=== PATIENT | male | born 1960 | race Caucasian/White ===

== ENCOUNTER 2018-11-29 11:15 | Inpatient (IN) | payer OTHER ==
[~2018-11-29] VITALS: Ht 182.9 cm; Wt 98.0 kg
[2018-11-29 11:24] VITALS: BP 147/82
[2018-11-29 11:52] LABS: HEMATOCRIT 47.6 % (42.0-52.0); HEMOGLOBIN 16.1 gm/dL (14.0-18.0); MCH 30.1 pg (26.0-34.0); MCHC 33.8 g/dL (28.0-37.0); MCV 89.1 fL (80.0-100.0); MPV 8.3 fl. (7.2-11.1); NUCLEATED RBCS 0 /100WBC; PLATELET COUNT* 290 thou/uL (150-400); RBC 5.34 mil/uL (4.50-6.00); RDW-CV 13.2 % (10.5-14.5); WBC 20.4 thou/uL (4.0-11.0)
[2018-11-29 12:01] LABS: URINE BLOOD TRACE (Negative); URINE CLARITY CLEAR; URINE COLOR DARK YELLOW; URINE GLUCOSE-RANDOM NEGATIVE (Negative); URINE KETONES 2+ (Negative); URINE LEUKOCYTES-REFLEX 1+ (Negative); URINE NITRITE-REFLEX NEGATIVE (Negative); URINE PROTEIN TRACE (Negative); URINE SPECIFIC GRAVITY 1.025 (1.005-1.030); URINE UROBILINOGEN 0.2 E.U./dl (0.2-1.0)
[2018-11-29 12:05] LABS: ICTOTEST (BILI CONFIRMATORY) Negative (Negative); URINE BILIRUBIN 1+ (Negative)
[2018-11-29 12:12] LABS: CREATININE 1.2 mg/dL (0.6-1.3); POTASSIUM 3.4 mmol/L (3.5-5.1)
--- NOTE | 2018-11-29 12:14 | NUR ---
(BENY) AT BEDSIDE
[2018-11-29 12:18] LABS: ALBUMIN 3.5 g/dL (3.4-5.0); TOTAL BILIRUBIN 3.1 mg/dL (<0.1-1.0); TOTAL PROTEIN 7.9 g/dL (6.4-8.2)
[2018-11-29 12:26] LABS: SQUAMOUS 4-10 Moderate /LPF (0-3)
[2018-11-29 12:30] LABS: CASTS None Seen /LPF (None Seen); CRYSTALS None Seen /LPF (None Seen); MUCUS None Seen strn/LPF (None Seen); URINE RBC None Seen /HPF (0-2)
[2018-11-29 12:36] LABS: ABSOLUTE NEUTROPHILS 17.3 thou/uL (1.6-8.1)
[2018-11-29 12:37] LABS: PLATELET ESTIMATE ADEQUATE
[2018-11-29 14:18] VITALS: BP 145/93
[2018-11-29 14:47] VITALS: BP 149/98
--- NOTE | 2018-11-29 14:52 | NUR ---
PATIENT ADMITTED FROM ER TO ROOM 107. ALERT AND ORIENTED. DENIES PAIN. IVF INFUSING ORDERED. VSS. ADMISSION HISTORY AND ASSESSMENT CHARTED. ORIENTED TO ROOM AND BED CONTROLS. EDUCATED ON FALL PREVENTION. CALL LIGHT WITHIN REACH. WILL CONTINUE TO MONITOR.
--- NOTE | 2018-11-29 15:57 | NUR ---
BLADDER SCAN 60MLS
--- NOTE | 2018-11-29 17:12 | NUR ---
PATIENT REMAINS ALERT AND ORIENTED. TYLENOL FOR HEADACHE. TOLERATING DIET. IVF INFUSING ORDERED. UP AD NOEL. AT BEDSIDE. AFEBRILE. CALL LIGHT WITHIN REACH. WILL CONTINUE TO MONITOR.
[2018-11-29 20:00] VITALS: BP 114/74
[2018-11-30 04:03] LABS: ABSOLUTE BASOPHILS 0.1 thou/uL (0.0-0.2); ABSOLUTE LYMPHOCYTES 1.8 thou/uL (0.8-5.3); ABSOLUTE MONOCYTES 2.7 thou/uL (0.0-1.2); ABSOLUTE NEUTROPHILS 13.7 thou/uL (1.6-8.1); BASOPHILS 0.5 %; EOSINOPHILS 0.1 %; HEMATOCRIT 39.2 % (42.0-52.0); LYMPHOCYTES 9.8 %; MCH 30.2 pg (26.0-34.0); MCHC 33.9 g/dL (28.0-37.0); MPV 8.5 fl. (7.2-11.1); NUCLEATED RBCS 0 /100WBC; PLATELET COUNT* 259 thou/uL (150-400); POLYS 74.6 %; RBC 4.41 mil/uL (4.50-6.00); RDW-CV 12.8 % (10.5-14.5); WBC 18.3 thou/uL (4.0-11.0)
[2018-11-30 04:15] LABS: HEMOGLOBIN 13.3 gm/dL (14.0-18.0)
[2018-11-30 04:23] LABS: ALBUMIN 2.7 g/dL (3.4-5.0); POTASSIUM 3.7 mmol/L (3.5-5.1); TOTAL BILIRUBIN 1.7 mg/dL (<0.1-1.0); TOTAL PROTEIN 6.1 g/dL (6.4-8.2)
--- NOTE | 2018-11-30 04:50 | NUR ---
PT REMAINED A&Ox4 THROUGHOUT SHIFT. VITALS STABLE. MILD TEMP OF 99.8. HEADACHE RELIEVED WITH TYLENOL. UP AD NOEL IN ROOM. IV IN L WRIST PATENT, SL. HOURLY ROUNDING COMPLETE. CALL LIGHT WITHIN REACH. WILL CONTINUE TO MONITOR.
[2018-11-30 08:00] VITALS: BP 124/71
[2018-11-30 16:07] VITALS: BP 132/62
--- NOTE | 2018-11-30 18:56 | NUR ---
ALERT AND ORIENTED X4. UP AD NOEL IN ROOM. IV IS PATENT AND INFUSING. PAIN BEING MANAGED WITH PO PAIN MEDICATION. DENIES NAUSEA. TOLERATING DIET. VSS ON ROOM AIR. HOURLY ROUNDS HAVE BEEN MAINTAINED THROUGHOUT SHIFT. CALL LIGHT IS WITHIN REACH. NURSING WILL CONTINUE TO MONITOR.
--- NOTE | 2018-11-30 18:59 | NUR ---
RN HAS REVIEWED AND AGREES WITH STUDENT NURSES CHARTING.
[2018-11-30 20:00] VITALS: BP 119/68
[2018-12-01 03:57] LABS: ABSOLUTE EOSINOPHILS 0.1 thou/uL (0.0-0.7); ABSOLUTE LYMPHOCYTES 1.6 thou/uL (0.8-5.3); ABSOLUTE MONOCYTES 1.6 thou/uL (0.0-1.2); ABSOLUTE NEUTROPHILS 7.2 thou/uL (1.6-8.1); BASOPHILS 0.5 %; EOSINOPHILS 0.8 %; HEMATOCRIT 41.4 % (42.0-52.0); HEMOGLOBIN 14.1 gm/dL (14.0-18.0); MCH 30.3 pg (26.0-34.0); MCV 89.2 fL (80.0-100.0); MPV 8.3 fl. (7.2-11.1); NUCLEATED RBCS 0 /100WBC; PLATELET COUNT* 268 thou/uL (150-400); POLYS 68.7 %; RBC 4.64 mil/uL (4.50-6.00); RDW-CV 12.7 % (10.5-14.5); WBC 10.5 thou/uL (4.0-11.0)
[2018-12-01 04:18] LABS: CALCIUM 8.4 mg/dL (8.5-10.1); POTASSIUM 3.7 mmol/L (3.5-5.1)
--- NOTE | 2018-12-01 04:52 | NUR ---
PT REMAINED A&Ox4 THROUGHOUT SHIFT. UP AD NOEL. DENIED PAIN, NAUSEA/VOMITING. WBC CAME DOWN TO A NORMAL RANGE OF 10.5 DUING 0400 BLOOD DRAW. DENIED TROUBLE URINATING. IV IN L WRIST PATENT, INFUSING. CALL LIGHT WITHIN REACH. HOURLY ROUNDING COMPLETE. WILL CONTINUE TO MONITOR.
[2018-12-01 09:05] VITALS: BP 134/82
[2018-12-01 12:08] VITALS: BP 134/82
[2018-12-01 12:12] VITALS: BP 134/82
[2018-12-01 13:27] VITALS: BP 134/82
--- NOTE | 2018-12-01 13:28 | NUR ---
PT GIVEN DISHCARGE INFORMATION. PT DENIED ANY FURTHER QUESTIONS OR CONCERNS. IV REMOVED. PT LEFT WITH SPOUSE TO HOME. FALL RISK PRECAUTIONS IN PLACE. HOURLY ROUNDING COMPLETED.
--- NOTE | 2018-12-01 14:22 | NUR ---
I REVIEWED AND AGREE WITH STUDENT'S ASSESSMENT.
== END 2018-12-01 13:29 | disposition home or self-care (01) | DRG 690 ==
LOC: M.ERS 11:15 → M.TBA-ER 13:19 → M.ORTHSURG 13:19
PROVIDERS: Physician Assistant; ADMIT Internal Medicine
DX: N39.0 Urinary tract infection, site not specified (principal); D72.829 Elevated white blood cell count, unspecified; K21.9 Gastro-esophageal reflux disease without esophagitis; R31.9 Hematuria, unspecified; N40.1 Benign prostatic hyperplasia with lower urinary tract symptoms; L40.9 Psoriasis, unspecified; Z84.1 Family history of disorders of kidney and ureter; Z90.49 Acquired absence of other specified parts of digestive tract; Z79.899 Other long term (current) drug therapy

== ENCOUNTER 2021-06-08 11:34 | Emergency (ER) | payer OTHER ==
[~2021-06-08] VITALS: Ht 182.9 cm; Wt 99.8 kg
[2021-06-08] MEDS ORDERED: MELOXICAM7.5 MG PO (11:45)
[2021-06-08] MEDS ORDERED: METHOTREXA1 GM/40 M2 IV PUSH (11:45)
[2021-06-08] MEDS ORDERED: HUMARA (11:45)
[2021-06-08 12:55] LABS: URINE BILIRUBIN NEGATIVE (Negative); URINE BLOOD 2+ (Negative); URINE CLARITY CLEAR; URINE COLOR YELLOW; URINE GLUCOSE-RANDOM NEGATIVE (Negative); URINE KETONES 2+ (Negative); URINE LEUKOCYTES-REFLEX 1+ (Negative); URINE NITRITE-REFLEX NEGATIVE (Negative); URINE PROTEIN 1+ (Negative); URINE SPECIFIC GRAVITY 1.015 (1.005-1.030)
--- NOTE | 2021-06-08 12:57 | EKG ---
[place] [address] ELECTROCARDIOGRAM REPORT Name: DAMON ALBERTO [facility] [id number] Admission: 06/08/21 Attend Phys: Discharge: Date of : 56 Date of Service: 06/08/21 1155 Report #: [id number] THIS REPORT FOR: //name// [facility] ED Test Date: 2021-06-08 Test Time: 11:55:21 Pat Name: DAMON ALBERTO Department: Room: Gender: Barge Hand: [place] : 1960 Requested By: Brent Nichols Order Number: [id number] MD: Ziyad Leon Measurements Intervals [place] Rate: 123 P: 13 MA: 138 QRS: 19 QRSD: 80 T: 30 QT: 295 QTc: 422 Interpretive Statements Sinus tachycardia Probable left atrial enlargement Abnormal R-wave progression, late transition Baseline wander in lead(s) II,III,aVR,aVL,aVF,V2,V3 No previous ECG available for comparison Electronically Signed On 06-08-2021 12:57:19 CDT by Ziyad Leon [email or web address] <ELECTRONICALLY SIGNED> By: Ziyad Leon MD, [facility] 06/08/21 1257 1155 1155 Ziyad Leon MD, [facility] /EPI
[2021-06-08 13:05] LABS: HEMATOCRIT 45.9 % (42.0-52.0); HEMOGLOBIN 15.5 gm/dL (14.0-18.0); MCH 31.1 pg (26.0-34.0); MCHC 33.8 g/dL (28.0-37.0); MCV 92.1 fL (80.0-100.0); MPV 7.9 fl. (7.2-11.1); NUCLEATED RBCS 0 /100WBC; PLATELET COUNT* 283 thou/uL (150-400); RBC 4.98 mil/uL (4.50-6.00); RDW-CV 14.4 % (10.5-14.5); WBC 21.9 thou/uL (4.0-11.0)
[2021-06-08 13:14] LABS: CASTS None Seen /LPF (None Seen); CRYSTALS None Seen /LPF (None Seen); MUCUS None Seen strn/LPF (None Seen); SQUAMOUS 4-10 Moderate /LPF (0-3); URINE RBC >20 Many /HPF (0-2)
[2021-06-08 13:26] LABS: ABSOLUTE LYMPHOCYTES 1.5 thou/uL (0.8-5.3); ABSOLUTE MONOCYTES 1.3 thou/uL (0.0-1.2); ABSOLUTE NEUTROPHILS 19.1 thou/uL (1.6-8.1); ATYPICAL LYMPHS 2 %
[2021-06-08 13:29] LABS: CALCIUM 8.4 mg/dL (8.5-10.1); CREATININE 1.1 mg/dL (0.6-1.3)
[2021-06-08 13:33] LABS: ALBUMIN 4.3 g/dL (3.4-5.0); TOTAL BILIRUBIN 2.3 mg/dL (<0.1-1.0); TOTAL PROTEIN 8.1 g/dL (6.4-8.2)
[2021-06-08] MEDS ORDERED: LEVAQUIN 500 M500 MG PO (15:07)
[2021-06-08 15:16] VITALS: BP 122/84
== END 2021-06-08 15:17 | disposition home or self-care (01) ==
LOC: M.ERS 11:34
PROVIDERS: Family Medicine
DX: N39.0 Urinary tract infection, site not specified (principal); R55 Syncope and collapse; K21.9 Gastro-esophageal reflux disease without esophagitis; M19.90 Unspecified osteoarthritis, unspecified site

== ENCOUNTER → 2021-12-24 | Outpatient (CLI) | payer OTHER ==
[~2021-12-24] MED LIST: HUMARA; LEVAQUIN 500 M500 MG PO; MELOXICAM7.5 MG PO; METHOTREXA1 GM/40 M2 IV PUSH
== END ==
LOC: M.ULTRA 14:18
PROVIDERS: ATTEND Family Medicine
DX: R22.41 Localized swelling, mass and lump, right lower limb (principal); Z82.49 Family history of ischemic heart disease and other diseases of the circulatory system